=== PATIENT | male | born 1955 | race Caucasian/White ===

== ENCOUNTER → 2021-01-18 | Outpatient (CLI) | payer MEDICARE ==
[~2021-01-18] MED LIST: CLARITIN10 MG PO; ECOTRIN81 MG PO; ELAVIL 50 MG TA50 MG PO; FENOFIBRATE160 MG PO; FLONASE 0.05% N16 GM; LAMOTRIGINE25 MG PO; LIPITOR TAB 1010 MG PO; MICROZIDE12.5 MG PO; NEURONTIN 400400 MG PO; NORVASC 5 MG TAB5 MG PO; TENORMIN 25 MG25 MG PO; ZANTAC150 MG PO; ZESTRIL40 MG PO
[2021-01-18 09:51] LABS: HEMOGLOBIN 14.4 gm/dl (14.0-17.5); RED BLOOD COUNT 4.78 M/UL (4.20-5.50); WHITE BLOOD COUNT 7.8 K/UL (4.5-11.0)
[2021-01-18 10:19] LABS: BUN/CREATININE RATIO 17 (0-10)
== END ==
LOC: LAB 08:09
PROVIDERS: Nurse Practitioner Family
DX: Z12.5 Encounter for screening for malignant neoplasm of prostate (principal); E78.5 Hyperlipidemia, unspecified; E55.9 Vitamin D deficiency, unspecified; R68.89 Other general symptoms and signs; R79.89 Other specified abnormal findings of blood chemistry; R53.83 Other fatigue; R73.09 Other abnormal glucose
CPT/HCPCS: 36415; 80053; 80061; 82728; 83036; 83540; 83550; 84443; 85025; G0103

== ENCOUNTER → 2021-07-11 | Outpatient (CLI) | payer MEDICARE ==
[2021-07-11 09:29] LABS: HEMOGLOBIN 15.9 gm/dl (14.0-17.5); RED BLOOD COUNT 5.23 M/UL (4.20-5.50); WHITE BLOOD COUNT 8.8 K/UL (4.5-11.0)
[2021-07-11 09:46] LABS: BUN/CREATININE RATIO 14 (0-10)
== END ==
LOC: LAB 08:49
PROVIDERS: Internal Medicine Cardiovascular Disease
DX: I10 Essential (primary) hypertension (principal); E78.5 Hyperlipidemia, unspecified; J44.9 Chronic obstructive pulmonary disease, unspecified; R39.11 Hesitancy of micturition
CPT/HCPCS: 36415; 80053; 80061; 84443; 85025